=== PATIENT | male | born 1960 | race Caucasian/White ===

== ENCOUNTER → 2023-10-01 16:31 | Outpatient (REF) | payer OTHER, SELFPAY ==
[2023-10-01 17:05] LABS: % Basophils 1.3 % (0-2); % Eosinophils 2.5 % (0-6); % Immature Granulocytes 0.3 % (0-0.5); % Lymphocytes 44.9 % (20.5-51.1); % Monocytes 10.4 % (1.7-9.3); % Neutrophils 40.6 % (42.2-75.2); Absolute Basophils 0.1 10^3/uL (0-0.2); Absolute Eosinophils 0.2 10^3/uL (0-0.7); Absolute Monocytes 0.7 10^3/uL (0.1-0.6); Absolute Neutrophils 2.7 10^3/uL (1.4-6.5); Hematocrit 41.3 % (39.0-52.0); Mean Corp Hgb Conc. 33.9 g/dL (33.0-37.0); Mean Corpuscular Hgb 32.2 pg (27.0-31.0); Mean Corpuscular Volume 94.9 fL (80.0-94.0); Mean Platelet Volume 9.2 fL (7.4-10.4); Nucleated Red Blood Cells % 0 % (-); Platelet Count 314 10^3/uL (130-400); Red Blood Cell Count 4.35 10^6/uL (4.70-6.10); Red Cell Dist. Width 12.3 % (11.5-14.5); White Blood Cell Count 6.8 10^3/uL (4.8-10.8)
[2023-10-01 17:12] LABS: ALT (SGPT) 19 U/L (0-50); AST (SGOT) 24 U/L (17-59); Albumin 4.4 g/dl (3.5-5.0); Alkaline Phosphatase 66 U/L (38-126); Blood Urea Nitrogen 23 mg/dl (9-20); Calcium 10.1 mg/dl (8.4-10.2); Carbon Dioxide 29 mmol/L (22-30); Chloride 101 mmol/L (98-107); Glucose 93 mg/dl (70-99); Potassium 4.3 mmol/L (3.5-5.1); Sodium 140 mmol/L (135-145); Total Bilirubin 0.7 mg/dl (0.2-1.3); Total Protein 7.2 g/dl (6.3-8.2); eGFR > 60.00
[2023-10-01 17:13] LABS: Amylase 61 U/L (30-110); Lipase 76 U/L (23-300)
== END ==
LOC: REG 16:31
PROVIDERS: ATTENDING PHYSICIAN Nurse Practitioner Family
DX: R06.02 Shortness of breath (principal); R10.9 Unspecified abdominal pain
CPT/HCPCS: 36415; 71046; 80053; 82150; 83690; 85025

== ENCOUNTER → 2023-10-07 15:02 | Outpatient (REF) | payer OTHER, SELFPAY | LOC: HWRAD 15:02 | PROVIDERS: ATTENDING PHYSICIAN Nurse Practitioner Family; REFERRING PHYSICIAN Internal Medicine Gastroenterology | DX: R10.9 Unspecified abdominal pain (principal) | CPT/HCPCS: 74177; Q9967 ==

== ENCOUNTER 2023-11-15 22:47 | Inpatient (IN) | payer OTHER, SELFPAY ==
[2023-11-15] VITALS (7 sets, daily range): BP systolic 97–128; BP diastolic 68–107; BMI 26.5
[2023-11-15 19:56] LABS: % Basophils 0.4 % (0-2); % Eosinophils 1.7 % (0-6); % Immature Granulocytes 0.4 % (0-0.5); % Lymphocytes 18.5 % (20.5-51.1); % Monocytes 9.5 % (1.7-9.3); % Neutrophils 69.5 % (42.2-75.2); Absolute Basophils 0.1 10^3/uL (0-0.2); Absolute Eosinophils 0.2 10^3/uL (0-0.7); Absolute Lymphocytes 2.1 10^3/uL (1.2-3.4); Absolute Monocytes 1.1 10^3/uL (0.1-0.6); Absolute Neutrophils 7.9 10^3/uL (1.4-6.5); Hematocrit 43.2 % (39.0-52.0); Mean Corp Hgb Conc. 34.7 g/dL (33.0-37.0); Mean Corpuscular Hgb 31.9 pg (27.0-31.0); Mean Corpuscular Volume 91.9 fL (80.0-94.0); Mean Platelet Volume 9.4 fL (7.4-10.4); Nucleated Red Blood Cells % 0 % (-); Platelet Count 288 10^3/uL (130-400); Red Cell Dist. Width 12.8 % (11.5-14.5); White Blood Cell Count 11.4 10^3/uL (4.8-10.8)
--- NOTE | 2023-11-15 20:06 | ED.GENMED ---
History of Present Illness
General
Chief Complaint: Abdominal Pain
Source: patient
Exam Limitations: none
Time Seen by Provider: 11/15/23 20:01
Travel History
Have you had any contact with someone who has COVID-19?: No
Do you have any symptoms of coronavirus? Fever > 100 degrees, chills, cough, shortness of breath, sore throat, loss of taste or smell, muscle aches, or headache?: No
History of Present Illness
History of Present Illness:
See MDM
Past History
Past History
ED Past Medical History: Arrthythmia, GERD, Psychiatric (Anxiety, panic disorder, prior history of alcohol abuse) and Other (Kidney stones, BPH, neuropathy, Intussusception, gastritis, Asthmatic bronchitis, PAD)
ED Past Surgical History: Cardiac (Cardiac catheterization 08/30/2018, clean coronaries, normal EF 51%.), Orthopedic (Cervical spine surgery 2004) and Other (Left Thoracotomy, anuerysm repair, Bilateral hernia repairs)
Social History
Tobacco: Smoker
Alcohol: Former
Drug: None
Personal:
Living: alone
Employment: Disabled
Family History
Family History: Hypertension
Phy Exam
Physical Exam
Physical Exam:
See MDM
Course
Orders/Labs/Results
Orders:
Orders
11/15/23 19:48
Complete Blood Count/With Diff Urgent
Comprehensive Metabolic Panel Urgent
Lipase Urgent
11/15/23 20:04
0.9% Sodium Chloride 1000 ml [Nss] 1,000 ml IV BOLUS
Ketorolac [Toradol] 30 mg IV NOW STA
Morphine Sulfate 4 mg IV NOW STA
Ondansetron Injectable [Zofran] 4 mg IV NOW STA
11/15/23 20:05
CT Abd/pelvis W Iv Cont Urgent
Comment:
Reason For Exam: RLQ pain
11/15/23 21:06
Piperacillin/Tazo 3.375 Gram [Zosyn] 3.375 gram in 50 ml IV NOW
11/15/23 21:21
Consult Surgery [SURGICAL CONSULT] Routine
Consulting Provider: Dom Pham
Was physician already notified: Yes
Abnormal Lab Results
11/15/23
19:48
WBC 11.4 H 10^3/uL
(4.8-10.8)
MCH 31.9 H pg
(27.0-31.0)
Absolute Neuts (auto) 7.9 H 10^3/uL
(1.4-6.5)
Absolute Monos (auto) 1.1 H 10^3/uL
(0.1-0.6)
Lymphocytes % 18.5 L %
(20.5-51.1)
Monocytes % 9.5 H %
(1.7-9.3)
11/15/23 19:48
11/15/23 19:48
Vital Signs
Initial and Last Documented VS:
Initial Vital Signs
Temp Pulse Resp BP Pulse Ox
99.2 F 76 16 128/107 100
11/15/23 19:17 11/15/23 19:17 11/15/23 19:17 11/15/23 19:17 11/15/23 19:17
Last Documented Vital Signs
Temp Pulse Resp BP Pulse Ox
99.2 F 76 16 128/107 100
11/15/23 19:17 11/15/23 19:17 11/15/23 19:17 11/15/23 19:17 11/15/23 19:17
MDM/Problems Addressed
Differential Diagnosis Includes:
HPI and MDM Narrative:
63-year-old male presenting with right lower quadrant pain that has progressed over the past 24 hours. Patient has a history of kidney stones but states this feels different. He denies diarrhea, constipation or urinary symptoms.
On exam, he does have point tenderness to the right lower quadrant. Given location of pain, will obtain CT to rule out kidney stone. No palpable hernia
Physical exam
General: Well appearing and non-toxic
HEENT: protecting airway
Neck: appears supple
CV: No evidence of cyanosis
Resp: No accessory muscle use
Abd: Non-distended. Point tenderness to right lower quadrant
Extremities: No deformities
Neuro: alert
Psych: Normal affect
Skin: Intact
Problems Addressed including Acute and Chronic Conditions affecting care:
1. Acute appendicitis
Acuity: acute
Prognosis: stable
Details: CT consistent with appendicitis. Patient started on Zosyn. Surgery made aware
Differential Diagnosis (but not limited to): Constipation, colitis, hernia, appendicitis, kidney stone
Testing considered: Urinalysis but he denies symptoms
Drug therapy (if applicable): OTC meds, please see d/c instruction regarding Rx drugs
Amount and/or Complexity of Data Reviewed
Clinical info obtained from: Patient
External data reviewed: N/A
Labs I independently reviewed (but not limited to): Mild leukocytosis
Radiology: The CT scan was personally and independently reviewed. In addition, official CT report reviewed.
Pulse Ox: not hypoxic
EKG independently reviewed: N/A
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
Critical Care: N/A
Risk of Complication:
Social Determinants of health: Good social support
Discussed with other providers: Surgeon, hospitalist
Escalation of Care includes Admit/Obs: Given the concern for acute appendicitis, will start IV antibiotics and admit
Occasional wrong word or 'sound a like' substitutions may have occurred due to the inherent limitations of voice recognition software. Read the chart carefully and recognize, using context, where substitutions have occurred.
*Critical Care Note
Total Time (30-74mins, 75-104mins- exclusive of procedures): Not Applicable
ED Attending Note
-
Portions of this chart may have been created with voice recognition software.� Occasional wrong word or��sound alike� substitutions may have occurred due to the inherent limitations of voice recognition software.
Discharge Plan
Departure
Patient Disposition: Admit
Date of Disposition: 11/15/23
Time of Disposition: 21:21
Admit to: Med/Surg
Presentation/result/management discussed w/ accepting MD/DO: Hospitalist
Discharge Problem:
Acute appendicitis
Prescriptions:
No Action
finasteride 5 MG tablet
5 mg PO DAILY
acebutolol 200 MG capsule
200 mg PO DAILY
amitriptyline 10 MG tablet
20 mg PO HSPRN PRN (Reason: sleep)
levetiracetam 500 MG tablet
750 mg PO BID
clonazepam 1 MG tablet
2 mg PO BID
Patient Comments:
10/15/2021: last filled 09/30/21, 60 tabs for 30 days from [facility]
topiramate 25 MG tablet
25 mg PO BID
dextroamphetamine-amphetamine [Adderall XR] 20 MG capsule,extended release 24hr
20 mg PO BID
Patient Comments:
10/15/2021: last filled 10/05/21, 60 tabs for 30 days from [facility]
baclofen 10 MG tablet
10 mg PO TID
gabapentin 300 MG capsule
300 mg PO TID
azelastine 1 SPRAY aerosol,spray
2 spray intranasal BIDPRN PRN (Reason: seasonal allergies)
albuterol sulfate 1 PUFF HFA aerosol inhaler
2 puff inhalation R Q6HPRN PRN (Reason: sob)
oxybutynin chloride 5 MG tablet
5 mg PO BID
multivitamin with folic acid [Tab-A-Lauren] 1 TABLET tablet
1 tab PO DAILY
aspirin 81 MG tablet,delayed release (DR/EC)
81 mg PO DAILY
calcium carbonate-vitamin D3 1 EACH tablet
1 ea PO DAILY
ascorbic acid (vitamin C) [Vitamin C] 500 MG tablet
500 mg PO BID
pantoprazole 40 MG tablet,delayed release (DR/EC)
40 mg PO DAILY
tamsulosin 0.4 MG capsule
0.4 mg PO DAILY
nitroglycerin 0.4 MG tablet, sublingual
0.4 mg sublingual [id number] PRN (Reason: chest pain)
tapentadol [Nucynta ER] 50 MG tablet extended release 12 hr
50 mg PO BID
Patient Comments:
10/15/2021: last filled 09/05/21, 60 tabs for 30 days from [facility]
cefdinir [Omnicef] 300 MG capsule
300 mg PO BID Qty: 6 0RF
Referrals:
Krupa Parmar CRNP [Family Provider] -
Interventions
Interventions:
*Risk Screen - Suicide Last Done: 11/15/23 19:17
*General Assessment Last Done: 11/15/23 19:46
*Neglect/Abuse Screening Last Done: 11/15/23 19:17
ED- Fall Risk Assessment Last Done: 11/15/23 19:54
*ED COVID-19 Vaccine History Last Done: 11/15/23 19:17
SR-Zlmzyd-Nyprygxejw Assessment Last Done: 11/15/23 19:54
[2023-11-15] MEDS: TORADOL 30 MG IV (20:07)
[2023-11-15] MEDS: NSS 1000 IV (20:08)
[2023-11-15] MEDS: ZOFRAN 4 MG IV (20:08)
[2023-11-15] MEDS: MORPHINE SULFATE 4 MG IV (20:08)
[2023-11-15 20:10] LABS: ALT (SGPT) 18 U/L (0-50); AST (SGOT) 21 U/L (17-59); Albumin 4.7 g/dl (3.5-5.0); Alkaline Phosphatase 76 U/L (38-126); Blood Urea Nitrogen 20 mg/dl (9-20); Carbon Dioxide 25 mmol/L (22-30); Chloride 106 mmol/L (98-107); Estimated Creatinine Clearance 99 ml/min; Glucose 91 mg/dl (70-99); Lipase 61 U/L (23-300); Potassium 3.6 mmol/L (3.5-5.1); Sodium 139 mmol/L (135-145); Total Bilirubin 0.4 mg/dl (0.2-1.3); Total Protein 7.6 g/dl (6.3-8.2); eGFR > 60.00
[2023-11-15] MEDS: ZOSYN 50 IV (21:18)
--- NOTE | 2023-11-15 22:11 | HPS.HSE ---
Addendum entered and electronically signed by Sarath Gonzalez DO 11/16/23 00:03:
Patient seen and examined independently. Agree with findings and plan as set forth by Dorcas Ang PA-C.
Patient is a 63y M with PMH significant for TBI and seizure disorder who presents to ED complaining of RLQ pain since this AM. Patient denies any fevers or chills. Some nausea without emesis. Patient was evaluated in the ED and found to have
acute appendicitis. He will be admitted for further evaluation and treatment.
Ass:
Acute Appendicitis
TBI
Seizure Disorder
Chronic Pain Syndrome
Peripheral Neuropathy
ASCVD
BPH
Anxiety
Plan:
Admit for further evaluation and treatment.
Continue IV abx for now.
Pain control, IVFs, supportive care.
Surgery evaluation for possible appendectomy.
Continue usual outpatient medications including antiseizure medications without interruption.
Original Note:
Family Physician
-
Family Physician: KUN Cedeno
Chief Complaint
-
Abdominal Pain
History of Present Illness
Patient is a 63 y/o male past medical history of TBI, Seizure Disorder, and ASCVD who presents with right lower quadrant abdominal pain. Patient reports pain was mild this morning but has gotten worse over the coarse of the day. He reports mild
nausea without vomiting. He denies diarrhea or constipation. He denies fevers, sweats or chills. CT scan in the emergency department revealed acute appendicitis. Hospitalist group has been asked to evaluate the patient for admission to the
hospital.
Medical History
Past Medical History
Past Medical History: Reports Other
Additional Past Medical History:
Traumatic Brain Injury
Seizure Disorder
Nonobstructive Coronary Artery Disease
Peripheral Vascular Disease
Essential Hypertension
SVT/PVCs
Asthma
BPH
GERD
GI Bleed
ADHD
Generalized Anxiety Disorder / Panic Disorder
Alcohol Use Disorder
Peripheral Neuropathy with Left Foot Drop
Chronic Pain with Opioid Dependence secondary to Cervical Spinal Stenosis
Past Surgical History: Reports Other
Additional Past Surgical History:
Subclavian Artery Aneurysm Repair
Cervical Fusion
Laminectomy
Right Parotid Surgery
Hernia Repair
Social History
Tobacco: Smoker (3-4 cigarettes per day)
Alcohol: Former (Sober for 20 year)
Family History
Family History: Not pertinent
Allergies / Home Medications
Allergies reflects when Allergies were last updated in [facility].
Home Medications with original date entered in [facility]
Allergy/Medication List:
Allergies
Allergy/AdvReac Type Severity Reaction Status Date / Time
diclofenac [From Cataflam] Allergy Mild Shortness Verified 11/15/23 19:19
of Breath
Home Medications
finasteride 5 mg tablet 5 mg PO DAILY Urinary issue 06/11/15
acebutolol 200 mg capsule 200 mg PO DAILY Blood pressure 08/30/18
albuterol sulfate 90 mcg/actuation aerosol inhaler 2 puff inhalation R Q6HPRN PRN sob 05/09/19
azelastine 137 mcg (0.1 %) nasal spray aerosol 2 spray intranasal BIDPRN PRN seasonal allergies 05/09/19
baclofen 10 mg tablet 10 mg PO HS muscle spasms 05/09/19
clonazepam 1 mg tablet 2 mg PO DAILY Mental Health/Anxiety 05/09/19
gabapentin 300 mg capsule 600 mg PO BID neuropathy 05/09/19
levetiracetam 500 mg tablet 750 mg PO BID Seizures 05/09/19
multivitamin with folic acid 400 mcg tablet (Tab-A-Lauren) 1 tab PO DAILY Supplement 05/09/19
topiramate 25 mg tablet 25 mg PO BID Seizures 05/09/19
aspirin 81 mg tablet,delayed release 81 mg PO DAILY Blood clot prevention/tx 03/03/20
calcium carbonate 500 mg-vitamin D3 10 mcg (400 unit) tablet 1 ea PO DAILY Supplement 03/03/20
ascorbic acid (vitamin C) 500 mg tablet (Vitamin C) 500 mg PO DAILY Supplement 01/28/21
pantoprazole 40 mg tablet,delayed release 40 mg PO DAILY Gastrointestinal issue 01/28/21
tamsulosin 0.4 mg capsule 0.4 mg PO DAILY Urinary issue 10/15/21
tapentadol 50 mg tablet,extended release,12 hr (Nucynta ER) 50 mg PO BID Pain 10/15/21
Amlodipine Besylate 5 mg PO DAILY 11/15/23
Equate Extracare Probiotic 1 tab PO BID 11/15/23
acetaminophen 325 mg tablet 650 mg PO Q8H PRN Chronic pain 11/15/23
d-mannose 500 mg capsule 1,000 mg PO DAILY 11/15/23
famotidine 40 mg tablet 40 mg PO HS 11/15/23
glucosamine sulf dipot chlr,msm,chond 550 mg-C 30 mg-arcadio 1 mg capsule (Glucosamine Chondroitin) 2 cap PO DAILY 11/15/23
krill oil 350 cap PO DAILY 11/15/23
lidocaine 1.8 % topical patch (ZTlido) 1 patch topical DAILY PRN pain 11/15/23
lisdexamfetamine 10 mg capsule 10 mg PO DAILY 11/15/23
loperamide 2 mg capsule 2 mg PO Q6H PRN Loose BM 11/15/23
magnesium citrate 100 mg capsule 600 mg PO DAILY 11/15/23
nicotine 21 mg/24 hr daily transdermal patch 1 patch transdermal Q24H 11/15/23
pumpkin seed extract 500 mg capsule 1,000 mg PO DAILY 11/15/23
vitamin B complex 1 tab PO DAILY 11/15/23
Review of Systems
-
A 12 point ROS was completed and negative except as noted: Yes
Constitutional: Denies Fever or Chills
Respiratory: Denies Cough or Trouble Breathing
Cardiac: Denies Chest Pain or Palpitations
Abdomen/GI: Reports See HPI
Physical Exam
Vital Signs
Vital Signs
Temp Pulse Resp BP Pulse Ox
99.2 F 87 14 118/81 96
11/15/23 19:17 11/15/23 21:15 11/15/23 21:15 11/15/23 21:00 11/15/23 21:15
Physical Exam
General: Comfortable and Conversant
HEENT: Moist mucous membranes and Atraumatic
Respiratory: Clear and Non Labored Respirations
Cardiac: S1/S2 and Regular Rhythm
GI: Soft, Non Distended and Tender (Mild RUQ; Moderate RLQ with rebound)
Rectal: Deferred by Provider
Musculoskeletal: No Clubbing and No Cyanosis
Skin: Warm and Dry
Neuro: Awake, Alert and Nonfocal/grossly intact
Laboratory Results
-
11/15/23 19:48
11/15/23 19:48
Laboratory Results
Total Bilirubin 0.4 mg/dl (0.2-1.3) 11/15/23 19:48
AST 21 U/L (17-59) 11/15/23 19:48
ALT 18 U/L (0-50) 11/15/23 19:48
Alkaline Phosphatase 76 U/L (38-126) 11/15/23 19:48
Lipase 61 U/L (23-300) 11/15/23 19:48
Data Reviewed
-
CT Scan: Report Reviewed by me
Lab Data: Labs Reviewed by me
Impression/Plan
-
Acute Appendicitis
-Consult Surgery
-Continue NPO/IVFs
-Continue Zosyn
Traumatic Brain Injury
Seizure Disorder
-Continue Levetiracetam and topiramate
Nonobstructive Coronary Artery Disease
Peripheral Vascular Disease
-Hold aspirin in preparation for OR
Essential Hypertension
-Continue acebutolol and amlodipine
Asthma
-Continue albuterol as needed
BPH
-Continue finasteride and Flomax
-Monitor bladder scans
GERD
-Continue famotidine and pantoprozole
Generalized Anxiety Disorder / Panic Disorder
-Continue clonazepam
Chronic Pain with Opioid Dependence
-Continue Nucynta
-Continue Baclofen
Peripheral Neuropathy
-Continue Gabapentin
DVT proph: SCDs
Code Status: Full Code
[2023-11-16] VITALS (9 sets, daily range): BP systolic 94–118; BP diastolic 59–76; BMI 26.5
[2023-11-16] MEDS: D5/0.45%NSS with KCL 10 MEQ 1000 IV (00:06)
--- NOTE | 2023-11-16 01:27 | PTCARENOTE ---
PT IS AAOX3, REPORTS abdominal pain 3/10 but states he does not need any medication at this time. pt is washed and chg wipes used. tele applied. pt oriented to room w/ call lindsay in reach.
[2023-11-16] MEDS: ZOSYN 50 IV ×3 (03:53→15:38)
[2023-11-16] MEDS: ZOFRAN 4 MG IV (03:54)
[2023-11-16] MEDS: DILAUDID 0.75 MG IV (03:55)
[2023-11-16 05:15] LABS: Hematocrit 39.4 % (39.0-52.0); Hemoglobin 13.7 g/dL (13.0-18.0); Mean Corp Hgb Conc. 34.8 g/dL (33.0-37.0); Mean Corpuscular Hgb 31.7 pg (27.0-31.0); Mean Corpuscular Volume 91.2 fL (80.0-94.0); Mean Platelet Volume 9.2 fL (7.4-10.4); Platelet Count 249 10^3/uL (130-400); Red Blood Cell Count 4.32 10^6/uL (4.70-6.10); White Blood Cell Count 10.3 10^3/uL (4.8-10.8)
[2023-11-16 05:42] LABS: Blood Urea Nitrogen 20 mg/dl (9-20); Calcium 8.9 mg/dl (8.4-10.2); Carbon Dioxide 25 mmol/L (22-30); Chloride 106 mmol/L (98-107); Estimated Creatinine Clearance 99 ml/min; Glucose 102 mg/dl (70-99); Magnesium 1.8 mg/dl (1.6-2.3); Potassium 3.9 mmol/L (3.5-5.1); Sodium 137 mmol/L (135-145); eGFR > 60.00
[2023-11-16] MEDS: KLONOPIN 2 MG PO (08:58)
[2023-11-16] MEDS: FLOMAX 0.400000000000000022 MG PO (08:58)
[2023-11-16] MEDS: PROTONIX 40 MG PO (08:58)
[2023-11-16] MEDS: NEURONTIN 600 MG PO (08:58)
[2023-11-16] MEDS: PROSCAR 5 MG PO (08:58)
[2023-11-16] MEDS: KEPPRA 750 MG PO (09:10)
[2023-11-16] MEDS: TOPAMAX 25 MG PO (09:14)
--- NOTE | 2023-11-16 10:12 | CON.GS ---
Consultation
-
Date/Time Consultation Requested: 11/15/2023
Date/Time Consultation Performed: 11/16/2023 8 AM
Requesting Provider: Hospitalist
Performing Provider: Dr. Ledesma
Reason for Consultation: Right lower quadrant pain, acute appendicitis
Medical History
-
Chief Complaint: Right lower quadrant pain
History of Present Illness:
This is a 63-year-old male who presents with a 1 day history of worsening right lower quadrant pain. The patient denies Fever, Chest Pain, Shortness Of Breath, Nausea, Vomiting, changes in urinary and bowel habits, unintentional weight loss,
jaundice, icterus, acolic stools.
Last colonoscopy in 2019: 2 polyps.
Past Medical History
Past Medical History: Reviewed & Noncontributory
Past Surgical History: Hernia Repair (Open right inguinal hernia.)
Social History
Tobacco: Smoker
Alcohol: None
Drug: None
Family History
Family History: Reviewed & Not Pertinent
Allergies / Home Medications
Allergy/AdvReac Type Severity Reaction Status Date / Time
diclofenac [From Cataflam] Allergy Mild Shortness Verified 11/15/23 19:19
of Breath
Medication Instructions Recorded Confirmed Type
finasteride 5 mg tablet 5 mg PO DAILY Urinary issue 06/11/15 11/15/23 History
acebutolol 200 mg capsule 200 mg PO DAILY Blood pressure 08/30/18 11/15/23 History
albuterol sulfate 90 mcg/actuation 2 puff inhalation R Q6HPRN PRN sob 05/09/19 11/15/23 History
aerosol inhaler
azelastine 137 mcg (0.1 %) nasal 2 spray intranasal BIDPRN PRN 05/09/19 11/15/23 History
spray aerosol seasonal allergies
baclofen 10 mg tablet 10 mg PO HS muscle spasms 05/09/19 11/15/23 History
clonazepam 1 mg tablet 2 mg PO DAILY Mental Health/Anxiety 05/09/19 11/15/23 History
gabapentin 300 mg capsule 600 mg PO BID neuropathy 05/09/19 11/15/23 History
levetiracetam 500 mg tablet 750 mg PO BID Seizures 05/09/19 11/15/23 History
multivitamin with folic acid 400 1 tab PO DAILY Supplement 05/09/19 11/15/23 History
mcg tablet (Tab-A-Lauren)
topiramate 25 mg tablet 25 mg PO BID Seizures 05/09/19 11/15/23 History
aspirin 81 mg tablet,delayed 81 mg PO DAILY Blood clot 03/03/20 11/15/23 History
release prevention/tx
calcium carbonate 500 mg-vitamin 1 ea PO DAILY Supplement 03/03/20 11/15/23 History
D3 10 mcg (400 unit) tablet
ascorbic acid (vitamin C) 500 mg 500 mg PO DAILY Supplement 01/28/21 11/15/23 History
tablet (Vitamin C)
pantoprazole 40 mg tablet,delayed 40 mg PO DAILY Gastrointestinal 01/28/21 11/15/23 History
release issue
tamsulosin 0.4 mg capsule 0.4 mg PO DAILY Urinary issue 10/15/21 11/15/23 History
tapentadol 50 mg tablet,extended 50 mg PO BID Pain 10/15/21 11/15/23 History
release,12 hr (Nucynta ER)
Amlodipine Besylate 5 mg PO DAILY Blood Pressure 11/15/23 11/15/23 History
Equate Extracare Probiotic 1 tab PO BID Supplement 11/15/23 11/15/23 History
acetaminophen 325 mg tablet 650 mg PO Q8H PRN Chronic pain 11/15/23 11/15/23 History
d-mannose 500 mg capsule 1,000 mg PO DAILY Supplement 11/15/23 11/15/23 History
famotidine 40 mg tablet 40 mg PO HS Gastrointestinal Issue 11/15/23 11/15/23 History
glucosamine sulf dipot 2 cap PO DAILY Supplement 11/15/23 11/15/23 History
chlr,msm,chond 550 mg-C 30 mg-arcadio
1 mg capsule (Glucosamine
Chondroitin)
krill oil 350 cap PO DAILY Supplement 11/15/23 11/15/23 History
lidocaine 1.8 % topical patch 1 patch topical DAILY PRN pain 11/15/23 11/15/23 History
(ZTlido)
lisdexamfetamine 10 mg capsule 10 mg PO DAILY Neurological 11/15/23 11/15/23 History
Condition
loperamide 2 mg capsule 2 mg PO Q6H PRN Loose BM 11/15/23 11/15/23 History
magnesium citrate 100 mg capsule 600 mg PO DAILY Supplement 11/15/23 11/15/23 History
nicotine 21 mg/24 hr daily 1 patch transdermal Q24H tobacco 11/15/23 11/15/23 History
transdermal patch cessation
pumpkin seed extract 500 mg capsule 1,000 mg PO DAILY Supplement 11/15/23 11/15/23 History
vitamin B complex 1 tab PO DAILY 11/15/23 11/15/23 History
Review of Systems
-
All other systems: Negative unless noted
A 10 point review of systems was completed, and was negative except as per HPI.
Physical Exam
Vital Signs
Temp Pulse Resp BP Pulse Ox
99.3 F 98 18 110/66 98
11/16/23 07:15 11/16/23 07:15 11/16/23 07:15 11/16/23 07:15 11/16/23 09:05
11/15/23 11/16/23 11/17/23
06:59 06:59 06:59
Actual Weight 84.822 kg
Body Mass Index (BMI) 26.5
Lab Results
11/16/23 05:02
11/16/23 05:02
WBC 10.3 10^3/uL (4.8-10.8) 11/16/23 05:02
Hgb 13.7 g/dL (13.0-18.0) 11/16/23 05:02
Hct 39.4 % (39.0-52.0) 11/16/23 05:02
Plt Count 249 10^3/uL (130-400) 11/16/23 05:02
Abs Immat Gran (auto) 0.0 10^3/uL (0-0.05) 11/15/23 19:48
Neutrophils % 69.5 % (42.2-75.2) 11/15/23 19:48
Physical Exam
General: Well Developed
HEENT: Normocephalic
Respiratory: Non Labored Respirations
GI: Soft and Tender (Tender to palpation of the right lower quadrant with focal peritonitis.)
Data Reviewed
-
CT Scan: Image Personally Visualized and interpreted, Report Reviewed by me, Discussed with Physician and Discussed with Patient
Labs: Labs Reviewed by me
Total Time Spent with Patient (in minutes): 30
Assessment / Plan
-
Is a 63-year-old male who presents with a 1 to 2-day history of the right lower quadrant pain. Exam, imaging, blood work all consistent with acute appendicitis, likely perforated.
N.p.o., IV fluids, IV Zosyn.
Will plan for laparoscopic appendectomy today.
Risks/Benefits/Alternatives, expected postoperative course and possible complications (bleeding, infection, injury to surrounding structures, acute/chronic pain) discussed at length. Patient wishes to proceed with surgery. All questions answered.
Consent obtained.
I spent roughly 55 minutes in total for the care of this patient today including direct patient care and counseling, reviewing labs, imaging, coordination of care, as well as documentation.
--- NOTE | 2023-11-16 10:20 | W.SUR.PREOP ---
Pre-Operative Surgical Note
-
I have examined this patient prior to the performance of the scheduled procedure.
The patient's condition is unchanged from the time of the current History and
Physical and the patient is able to undergo the scheduled procedure.
[2023-11-16] MEDS: D5/0.45%NSS with KCL 10 MEQ IV (10:50)
[2023-11-16] MEDS: NON-FORMULARY ITEM PO (10:50)
--- NOTE | 2023-11-16 11:38 | W.IMMPOSTOP ---
Surgical Immed Post Op Note
-
Primary Surgeon: Rickey Ledesma MD
Assisting Surgeon: None
Pre-op Diagnosis: Acute appendicitis
Post-op Diagnosis: Same
Procedure Performed: Laparoscopic appendectomy
Anesthesia Type: General
Specimen / Cultures: Appendix
Estimated Blood Loss: 3 cc
Complications: None
Operative Findings: Acute, suppurative, locally perforated appendicitis. Base taken with a 0 PDS Endoloop x 2
POST OP PLAN:
Imaging: None
Labs: Routine AM
Diet: Advance to Regular as tolerated
Analgesia: Tylenol 650mg q6 Geovanna, Heather 5mg q6 PRN, Dilaudid 0.5mg q2h PRN
Neuro/vascular checks: q4h
AC/AP: Hold Therapeutic AC, Ok for DVT PPx
Activity: Ad Liz
Wound/Incisions/Drains: Routine
Abx: IV versus p.o. coverage x 4 days.
Dispo: RNF, begin dispo planning.
--- NOTE | 2023-11-16 11:39 | OR.RPT ---
Operative Report
Operative Report
Patient Name: Casimiro Beverly
: 1960
Date of Operation: 11/16/2023
Preoperative Diagnosis: Acute Appendicitis
Postoperative Diagnosis: Same
Procedure(s):
Laparoscopic Appendectomy
Surgeon(s):
Dr. Ledesma
Manager Of Human Resources(s):
GILBERT Park
Anesthesia: General
Estimated Blood Loss: 3 cc
Urine Output: None
Drains/Lines/Implants: None
Specimens:
1. Appendix
HPI/Surgical Indications:
This is a 63-year-old male who presents with a 1-2 day history of abdominal pain. Exam, labs and imaging are consistent with acute appendicitis. Risks/Benefits/Alternatives were discussed at length, and the patient agreed to proceed with surgery.
Findings:
Acute, suppurative, locally perforated appendicitis. The base taken with the 0 PDS Endoloop x 2.
Procedure Description:
The patient was placed in the supine position, with the left arm tucked, and general anesthesia was induced. The abdomen was prepared and draped in a sterile fashion so as to expose the entire abdomen. A surgical time out was taken. Abdominal access
was obtained with an 5 mm infra-umbilical Diane Entry. After confirming no injury on entrance, two additional 5mm ports were placed in the suprapubic area just off midline and in the left lower quadrant. The patient was placed in Trendelenberg with
the right slightly up . The base of the appendix was identified and a window was created in the mesoappendix. The appendix was identified and somewhat retrocecal location. It was suppurative and inflamed and locally perforated into the abdominal
sidewall. Using the LigaSure energy device we marched along the appendiceal mesentery staying close to the appendix itself to free it up from the surrounding tissue. The appendix seemed most tethered in the distal body of the appendix. The base of
the appendix appeared uninvolved and was ligated/divided using two 0-PDS Endoloops and the energy device. The appendix was placed in a specimen retrieval bag. Hemostasis was confirmed and the ports were removed under visualization. The specimen was
passed off the field. The umbilical port was closed with a [id number] 0-PDS and the skin for all three ports was closed with interrupted monocryls and covered with dermabond. The patient was awoken from anesthesia in good condition and
transported to the recovery area.
I was the attending physician and performed the procedure with assistance from the RUBBISH COLLECTOR above . I was present for all portions of the case other than skin closing.
Rickey Ledesma MD
--- NOTE | 2023-11-16 12:00 | CM ---
Patient out of room to OR. CM called to listed contact and VM left. CM will continue to follow for discharge planning needs.
Plan; TBD following assessments.
--- NOTE | 2023-11-16 12:05 | W.PN.HOSP.TC ---
Today's Communication/Plan
-
d/c
Assessment / Plan
Assessment / Plan
pt is a 63 year old male
Acute Appendicitis--apprec surgery--s/p lap appy--advance diet--as per surgery can be d/c later this afternoon with 4 days of ABX
Traumatic Brain Injury/Seizure Disorder-Continue Levetiracetam and topiramate
Nonobstructive Coronary Artery Disease/Peripheral Vascular Disease-Hold aspirin in preparation for OR
Essential Hypertension-Continue acebutolol and amlodipine
Asthma-Continue albuterol as needed
BPH-Continue finasteride and Flomax-Monitor bladder scans
GERD-Continue famotidine and pantoprozole
Generalized Anxiety Disorder / Panic Disorder-Continue clonazepam
Chronic Pain with Opioid Dependence-Continue Nucynta-Continue Baclofen
Peripheral Neuropathy-Continue Gabapentin
DVT proph: SCDs
Code Status: Full Code
Anticipated Discharge: Today
Subjective/Interval History
-
Date of Service: November 16, 2023
pt with some pain--no objection to returning to residential tonight
Objective Data
-
Labs:
Laboratory Results
11/16/23
05:02
WBC 10.3
Hgb 13.7
Hct 39.4
Plt Count 249
Sodium 137
Potassium 3.9
Chloride 106
Carbon Dioxide 25
BUN 20
Creatinine 0.8
Glucose 102 H
Calcium 8.9
Vital Signs:
max temp for 24 hours
11/16/23
11:53
Temp 99.7 F
Vital Signs
Temp Pulse Resp BP Pulse Ox
99.7 F 95 17 111/67 99
11/16/23 11:53 11/16/23 12:00 11/16/23 12:00 11/16/23 12:00 11/16/23 12:00
I&O
11/15/23 11/16/23 11/17/23
06:59 06:59 06:59
Intake Total 650 / 650
Output Total 450 / 450
Balance 650 / 650 -450 / -450
Review of Systems
-
All other systems: Reviewed and negative
Physical Exam
-
General: Well Developed, Well Nourished and No Apparent Distress
HEENT: Normocephalic and Atraumatic
Respiratory: Clear to Auscultation; Negative Wheezes or Rhonchi
Cardiac: Regular Rhythm and S1/S2; Negative Murmur
GI: Soft, Nontender and Nondistended; Negative Normal Bowel Sounds (hypoactive--post op)
Musculoskeletal: No Clubbing, No Cyanosis and No Edema
Neuro: Awake
--- NOTE | 2023-11-16 12:52 | CM ---
Addendum entered by Rose Tarango 11/16/23 14:02:
Skylar agreed for patient to return to facility today. Ride available at 5pm. Please call report to [phone] /fax [phone]. thank you
Original Note:
Patient seen at bedside with physician. Patient lives at [facility], left for med care manager Skylar [phone]. Patient states that he has transportation from facility. CM await response from director of casework department. CM will continue to
follow for discharge planning needs.
Plan; home with no needs.
[2023-11-16] MEDS: TYLENOL 650 MG PO (14:17)
[2023-11-16] MEDS: NON-FORMULARY ITEM 50 MG PO (14:18)
--- NOTE | 2023-11-17 07:49 | W.DCSUMMARY ---
Discharge Summary
Discharge Data
Date of Admission: 11/15/23
Date of Discharge: 11/16/23
-
Pending Results: No
Hospital Course
Primary care physician : Krupa Parmar
Principal Discharge diagnosis : Acute appendicitis
Chronic Discharge diagnosis : Traumatic brain injury/seizure disorder, nonobstructive coronary artery disease with peripheral vascular disease, essential hypertension, asthma, benign prostatic hyperplasia, gastroesophageal reflux disease,
generalized anxiety disorder with panic disorder, chronic pain with opioid dependence, peripheral neuropathy
Hospital Course : Patient was a 63-year-old male with a history of traumatic brain injury and seizure disorder who presented with right lower quadrant abdominal pain. Patient reported that it started as mild but had gotten worse throughout the day.
He reported nausea without vomiting. He denied fevers, sweats, or chills. CAT scan of the abdomen and pelvis showed acute appendicitis. Patient was admitted.
Problem #1: Acute appendicitis. Patient was admitted and seen in consultation by surgery. He was taken to the operating room and was found to have an acute locally perforated appendix. He had no complications. His diet was started
postoperatively and he was tolerating it. He has been cleared for discharge to go home by surgery.
Problem #2: All other medical issues. These include Traumatic brain injury/seizure disorder, nonobstructive coronary artery disease with peripheral vascular disease, essential hypertension, asthma, benign prostatic hyperplasia, gastroesophageal
reflux disease, generalized anxiety disorder with panic disorder, chronic pain with opioid dependence, peripheral neuropathy. These medical issues were stable during his hospitalization. Medications were continued as able.
Patient is stable for discharge home at this time. If there are any questions regarding this dictation or his hospital stay, please do not hesitate to call. Our office number is [phone].
Important imaging findings :
CT SCAN ABDOMEN/PELVIS IMPRESSION:
There is acute appendicitis with 1.5 mm appendicolith.
There is no perforation or abscess.
Procedure findings :
Primary Surgeon: Rickey Ledesma MD
Assisting Surgeon: None
Pre-op Diagnosis: Acute appendicitis
Post-op Diagnosis: � Same
Procedure Performed: Laparoscopic appendectomy
Anesthesia Type: General
Specimen / Cultures: Appendix
Estimated Blood Loss: 3 cc
Complications: None
Operative Findings: Acute, suppurative, locally perforated appendicitis.� Base taken with a 0 PDS Endoloop x 2
Discharge Plan
-
Patient Disposition: Home (Routine Discharge)
Discharge Diagnosis/Procedures: Acute appendicitis. Laparoscopic appendectomy.
Condition: Good
Diet: No restrictions
Activity: No strenuous activity
Driving Restrictions: As prior to admission
Bathing Restrictions: OK to Shower
Activity Restrictions/Additional Instructions:
Instructions following Laparoscopic appendectomy
Please call [phone] if you have any questions or concerns after your surgery.
Wound Care:
Your incisions are covered with skin glue which will come off on its own in 5-10 days.
It is ok to shower the day after your surgery. Do not scrub the incisions, let soap and water wash over them and pat dry.
� Bruising around your incisions is normal.
� Using ice packs will help minimize this swelling.
� No swimming or soaking incisions for 1 week.
� Your stitches will dissolve and do not need to be removed.
Urinary retention:
If you are unable to urinate 6-8 hours after your surgery, please call [phone] to discuss further management.
Activity:
No heavy lifting more than 15 pounds for the next 3 weeks, then you may gradually lift heavier objects as tolerated by discomfort. Otherwise activity as tolerated by your comfort level.
Pain Management:
Use Tylenol, ibuprofen and ice packs to treat your pain.
� You may take 650 milligrams of Tylenol (Max 3 grams per day) every 6 hours, and 600 mg of ibuprofen also every 6 hours. (you can alternate them every 3 hours)
� You may use an ice pack to your incision as needed.
� If you still have pain not controlled by these measures, take your prescription pain medication if prescribed.
Medications:
You may resume your home medications.
Bowel Medications:
Prescription pain medication can make you constipated. If you take this medication, also take colace 100 mg twice daily (this is over the counter). If this is not sufficient, you may take Miralax (polyethylene glycol) to help move your bowels.
Diet:
After your procedure, there are no dietary restrictions.
Driving restrictions:
No driving if you are taking prescription pain medication or if you think your normal reaction time and attentiveness has been slowed by your surgery.
Things to Look out for:
Worsening Abdominal pain, redness or drainage from incision
Call Doctor for:
Please call if you notice worsening redness or drainage from incision(s) lasting longer than 5 days after your surgery, any foul-smelling drainage from the incision, pain not controlled by pain medications, persistent nausea and vomiting, or for any
fevers greater than 101.3 F. The number for questions/concerns is [phone]
Follow-up:
A follow-up appointment will be scheduled with your surgeon in 3-4 weeks. Please call prior to your appointment if you have any questions or concerns. [phone]
Referrals:
Krupa Parmar CRNP [Family Provider] - in less than 1 week
Rickey Ledesma MD [Active] - in three to four weeks
Prescriptions:
New
acetaminophen 325 mg Tablet
650 mg PO Q4HPRN PRN (Reason: mild pain/ fever>100.5F) Qty: 0 0RF
amoxicillin-pot clavulanate 500-125 mg tablet
1 tab PO Q12H Qty: 8 0RF
Continued
finasteride 5 MG tablet
5 mg PO DAILY
acebutolol 200 MG capsule
200 mg PO DAILY
levetiracetam 500 MG tablet
750 mg PO BID
clonazepam 1 MG tablet
2 mg PO DAILY
Patient Comments:
10/15/2021: last filled 09/30/21, 60 tabs for 30 days from [facility]
topiramate 25 MG tablet
25 mg PO BID
baclofen 10 MG tablet
10 mg PO HS
gabapentin 300 MG capsule
600 mg PO BID
azelastine 1 SPRAY aerosol,spray
2 spray intranasal BIDPRN PRN (Reason: seasonal allergies)
albuterol sulfate 1 PUFF HFA aerosol inhaler
2 puff inhalation R Q6HPRN PRN (Reason: sob)
multivitamin with folic acid [Tab-A-Lauren] 1 TABLET tablet
1 tab PO DAILY
aspirin 81 MG tablet,delayed release (DR/EC)
81 mg PO DAILY
calcium carbonate-vitamin D3 1 EACH tablet
1 ea PO DAILY
ascorbic acid (vitamin C) [Vitamin C] 500 MG tablet
500 mg PO DAILY
pantoprazole 40 MG tablet,delayed release (DR/EC)
40 mg PO DAILY
tamsulosin 0.4 MG capsule
0.4 mg PO DAILY
Nucynta ER 50 MG tablet extended release 12 hr
50 mg PO BID
Patient Comments:
10/15/2021: last filled 09/05/21, 60 tabs for 30 days from [facility]
Amlodipine Besylate
5 mg PO DAILY
acetaminophen 325 mg Tablet
650 mg PO Q8H PRN (Reason: Chronic pain)
loperamide 2 mg Capsule
2 mg PO Q6H PRN (Reason: Loose BM )
Rx Instructions:
Do not eceed 4 caps in 24 hours. Take 2 caps by mouth after first loose BM then 1 cap after each loose BM.
famotidine 40 mg Tablet
40 mg PO HS
nicotine 21 mg/24 hr Patch 24 Hour
1 patch TRANSDERMAL Q24H
vitamin B complex Tablet
1 tab PO DAILY
lisdexamfetamine 10 mg Capsule
10 mg PO DAILY
magnesium citrate 100 mg Capsule
600 mg PO DAILY
ZTlido 1.8 % Adhesive Patch,Medicated
1 patch TOPICAL DAILY PRN (Reason: pain)
Patient Comments:
apply 1 to 3 patches to affected area for 12 hours on and 12 hours off as needed
Glucosamine Chondroitin 550-30-1 mg Capsule
2 cap PO DAILY
d-mannose 500 mg Capsule
1,000 mg PO DAILY
pumpkin seed extract 500 mg Capsule
1,000 mg PO DAILY
Equate Extracare Probiotic
1 tab PO BID
krill oil
350 cap PO DAILY
Discharge Orders:
Discharge Patient (As Directed); Ordered 11/16/23
Ordered By: Luisana Garnett
Discharge Date and Time
Discharge Date/Time: 11/16/23 17:39
== END 2023-11-16 17:39 | disposition home or self-care (01) | DRG 398 ==
LOC: 2 SOUTH 22:47
PROVIDERS: Physician Assistant Medical; ADMITTING PHYSICIAN Hospitalist; ATTENDING PHYSICIAN Internal Medicine; CONSULT PHYSICIAN Surgery; EMERGENCY PHYSICIAN Student in an Organized Health Care Education/Training Program; FAMILY PHYSICIAN Nurse Practitioner Family
PROC: 0DTJ4ZZ Resection of Appendix, Percutaneous Endoscopic Approach (ICD-10-PCS; 2023-11-16)
DX: K35.32 Acute appendicitis with perforation, localized peritonitis, and gangrene, without abscess (principal); F11.20 Opioid dependence, uncomplicated; F41.0 Panic disorder [episodic paroxysmal anxiety]; F41.1 Generalized anxiety disorder; K21.9 Gastro-esophageal reflux disease without esophagitis; N40.0 Benign prostatic hyperplasia without lower urinary tract symptoms; J45.909 Unspecified asthma, uncomplicated; G62.9 Polyneuropathy, unspecified; I73.9 Peripheral vascular disease, unspecified; I25.10 Atherosclerotic heart disease of native coronary artery without angina pectoris; G89.4 Chronic pain syndrome; I10 Essential (primary) hypertension; K38.1 Appendicular concretions; G40.909 Epilepsy, unspecified, not intractable, without status epilepticus; F90.9 Attention-deficit hyperactivity disorder, unspecified type; F17.210 Nicotine dependence, cigarettes, uncomplicated; M48.02 Spinal stenosis, cervical region; M21.372 Foot drop, left foot; F10.11 Alcohol abuse, in remission; Z87.442 Personal history of urinary calculi; Z79.82 Long term (current) use of aspirin; Z87.820 Personal history of traumatic brain injury; Z88.8 Allergy status to other drugs, medicaments and biological substances
CPT/HCPCS: 88304; 74177; 80048; 80053; 83690; 83735; 85025; 85027; 93005; 96361; 96365; 96375; 99285; 99406; J3480; Q9967

== ENCOUNTER 2024-02-19 13:53 | Emergency (ER) | payer OTHER, SELFPAY ==
[2024-02-19 13:56] VITALS: BP 113/83
--- NOTE | 2024-02-19 16:03 | ED.GENMED ---
History of Present Illness
General
Chief Complaint: Musculo-Skeletal Complaint
Source: patient and continuum of care manager
Exam Limitations: other (tbi)
Time Seen by Provider: 02/19/24 14:50
Nursing documentation reviewed up to this point in time: agreed with
History of Present Illness
History of Present Illness:
pt is a 63 y/o M with h/o TBI from a faciliated recovery center/apartment but has staff
here with c/o L thumb/hand pain and shoulder pain from lifting his things at 2 am
pt says he has to move and so he was movin ghis things and packing and hurt his hand ands houlder
no numbness/tingling/weakness
no neck alexander
pt is sleepy because he was up in the night
he takes chronic nucynta because of chronic back and neck pain
he took it today
pain is worse with movement of his thumb
Past History
Past History
ED Past Medical History: Arrthythmia, GERD, Psychiatric (Anxiety, panic disorder, prior history of alcohol abuse) and Other (Kidney stones, BPH, neuropathy, Intussusception, gastritis, Asthmatic bronchitis, PAD)
ED Past Surgical History: Cardiac (Cardiac catheterization 08/30/2018, clean coronaries, normal EF 51%.), Orthopedic (Cervical spine surgery 2004) and Other (Left Thoracotomy, anuerysm repair, Bilateral hernia repairs)
Social History
Tobacco: Smoker
Alcohol: Former
Drug: None
Personal:
Living: alone
Employment: Disabled
Family History
Family History: Hypertension
Review of Systems
Review of Systems
Allergies reviewed?: Yes
All Other Systems: Not applicable
Phy Exam
Physical Exam
Physical Exam:
GENERAL: Alert , in no apparent distress, comfortable at rest
HEAD: NCAT
CV: 2+ radial pulse normsal sensation
NEUROLOGICAL drowsy, was asleep but arusable and woke up to talk to me no focal neuro deficits, , 5/5 strength, sensation intact,
SKIN: Warm and dry, no erythema
MUSCULOSKELETAL: mild swelling left thumb/wrist raidally and pain wtih thumb abduction tenderness with pos + sheree
left shulder normal inspection normal rom
PSYCH: Normal and appropriate interaction.
Course
Orders/Labs/Results
Orders:
Orders
02/19/24 13:58
CR Hand - Left Min 3 Views Urgent
Comment:
Reason For Exam: pain
CR Shoulder - Left Min 2 View* Urgent
Comment:
Reason For Exam: pain
02/19/24 16:12
Prednisone [Deltasone] 50 mg PO NOW STA
Vital Signs
Initial and Last Documented VS:
Initial Vital Signs
Temp Pulse Resp BP Pulse Ox
98.3 F 99 20 113/83 96
02/19/24 13:56 02/19/24 13:56 02/19/24 13:56 02/19/24 13:56 02/19/24 13:56
Last Documented Vital Signs
Temp Pulse Resp BP Pulse Ox
98.3 F 85 20 102/74 96
02/19/24 13:56 02/19/24 16:22 02/19/24 13:56 02/19/24 16:22 02/19/24 16:22
MDM/Problems Addressed
Differential Diagnosis Includes:
calcific tendinitis, de Quervain's tenosynovitis, arthritis, less likely gout
MDM/Problems Addressed:
Bronchitis 53-year-old male with a history of a TBI from a facility presents for left thumb/radial wrist pain and left shoulder pain while he was lifting something at 2 in the morning. Patient does he has to move his furniture and things and pack
up to move apartments and recalls suddenly feeling the pain in both regions. His pain is worse in his left thumb especially with abduction. Patient has not had any redness, fever, chills, chest pain, shortness of breath, neck pain, numbness
tingling or weakness. He is taking his normal Nucynta for pain. prednisone x 4 days
*Critical Care Note
Total Time (30-74mins, 75-104mins- exclusive of procedures): Not Applicable
ED Attending Note
-
Portions of this chart may have been created with voice recognition software.� Occasional wrong word or��sound alike� substitutions may have occurred due to the inherent limitations of voice recognition software.
Discharge Plan
Departure
Patient Disposition: Home (Routine Discharge)
Date of Disposition: 02/19/24
Time of Disposition: 16:09
Patient with high blood pressure during this ER visit?: No
Covid-19: Not Applicable
Discharge Problem:
Calcific tendinitis of left wrist
Instructions: Tendinopathy (DC)
Prescriptions:
New
prednisone 20 mg tablet
40 mg PO DAILY Qty: 8 0RF
No Action
finasteride 5 MG tablet
5 mg PO DAILY
acebutolol 200 MG capsule
200 mg PO DAILY
levetiracetam 500 MG tablet
750 mg PO BID
clonazepam 1 MG tablet
2 mg PO DAILY
Patient Comments:
10/15/2021: last filled 09/30/21, 60 tabs for 30 days from [facility]
topiramate 25 MG tablet
25 mg PO BID
baclofen 10 MG tablet
10 mg PO HS
gabapentin 300 MG capsule
600 mg PO BID
azelastine 1 SPRAY aerosol,spray
2 spray intranasal BIDPRN PRN (Reason: seasonal allergies)
albuterol sulfate 1 PUFF HFA aerosol inhaler
2 puff inhalation R Q6HPRN PRN (Reason: sob)
multivitamin with folic acid [Tab-A-Lauren] 1 TABLET tablet
1 tab PO DAILY
aspirin 81 MG tablet,delayed release (DR/EC)
81 mg PO DAILY
calcium carbonate-vitamin D3 1 EACH tablet
1 ea PO DAILY
ascorbic acid (vitamin C) [Vitamin C] 500 MG tablet
500 mg PO DAILY
pantoprazole 40 MG tablet,delayed release (DR/EC)
40 mg PO DAILY
tamsulosin 0.4 MG capsule
0.4 mg PO DAILY
Nucynta ER 50 MG tablet extended release 12 hr
50 mg PO BID
Patient Comments:
10/15/2021: last filled 09/05/21, 60 tabs for 30 days from [facility]
Amlodipine Besylate
5 mg PO DAILY
acetaminophen 325 mg Tablet
650 mg PO Q8H PRN (Reason: Chronic pain)
loperamide 2 mg Capsule
2 mg PO Q6H PRN (Reason: Loose BM )
Rx Instructions:
Do not eceed 4 caps in 24 hours. Take 2 caps by mouth after first loose BM then 1 cap after each loose BM.
famotidine 40 mg Tablet
40 mg PO HS
nicotine 21 mg/24 hr Patch 24 Hour
1 patch TRANSDERMAL Q24H
vitamin B complex Tablet
1 tab PO DAILY
lisdexamfetamine 10 mg Capsule
10 mg PO DAILY
magnesium citrate 100 mg Capsule
600 mg PO DAILY
ZTlido 1.8 % Adhesive Patch,Medicated
1 patch TOPICAL DAILY PRN (Reason: pain)
Patient Comments:
apply 1 to 3 patches to affected area for 12 hours on and 12 hours off as needed
Glucosamine Chondroitin 550-30-1 mg Capsule
2 cap PO DAILY
d-mannose 500 mg Capsule
1,000 mg PO DAILY
pumpkin seed extract 500 mg Capsule
1,000 mg PO DAILY
Equate Extracare Probiotic
1 tab PO BID
krill oil
350 cap PO DAILY
acetaminophen 325 mg Tablet
650 mg PO Q4HPRN PRN (Reason: mild pain/ fever>100.5F) Qty: 0 0RF
amoxicillin-pot clavulanate 500-125 mg tablet
1 tab PO Q12H Qty: 8 0RF
Referrals:
Robel Corley MD [Family Provider] -
Activity Restrictions/Additional Instructions:
Your x-ray showed no broken bones, you do have some arthritis in your left wrist and what looks to be some tendinitis, calcific tendinitis in the left thumb/wrist region. Wear the splint during the day, you can take it off at night. Ice off-and-on
as needed. Take prednisone once a day starting tomorrow for the next 4 days. This is an anti-inflammatory and should help. Make sure to keep taking your stomach medication pantoprazole. Return for worsening symptoms like redness, fever,
inability to move your wrist or shoulder or any concern
Interventions
Interventions:
*Risk Screen - Suicide Last Done: 02/19/24 13:56
*General Assessment Last Done: 02/19/24 13:56
*Neglect/Abuse Screening Last Done: 02/19/24 16:25
ED- Fall Risk Assessment Last Done: 02/19/24 16:25
*ED COVID-19 Vaccine History Last Done: 02/19/24 14:19
*Nursing Disposition Last Done: 02/19/24 16:25
ED-Musculoskeletal Assessment Last Done: 02/19/24 14:19
Discharge Date and Time
Discharge Date/Time: 02/19/24 16:26
Print Language: POLISH
[2024-02-19] MEDS: DELTASONE 50 MG PO (16:21)
[2024-02-19 16:22] VITALS: BP 102/74
== END 2024-02-19 16:26 | disposition home or self-care (01) ==
LOC: EMR 13:53
PROVIDERS: EMERGENCY PHYSICIAN Emergency Medicine; FAMILY PHYSICIAN Family Medicine
DX: M65.222 Calcific tendinitis, left upper arm (principal); K21.9 Gastro-esophageal reflux disease without esophagitis; F41.9 Anxiety disorder, unspecified; F10.10 Alcohol abuse, uncomplicated; N40.0 Benign prostatic hyperplasia without lower urinary tract symptoms; I73.9 Peripheral vascular disease, unspecified; G62.9 Polyneuropathy, unspecified; Z87.820 Personal history of traumatic brain injury
CPT/HCPCS: 99284; 73030; 73130

== ENCOUNTER → 2024-04-27 06:24 | Day surgery (SDC) | payer OTHER, SELFPAY | LOC: GI 06:24 | PROVIDERS: ATTENDING PHYSICIAN Internal Medicine Gastroenterology | DX: Z12.11 Encounter for screening for malignant neoplasm of colon (principal); K57.30 Diverticulosis of large intestine without perforation or abscess without bleeding; K62.1 Rectal polyp; Z86.010 Personal history of colon polyps | CPT/HCPCS: 45385; 88305 ==